=== PATIENT | male | born 1950 | race Caucasian/White ===

== ENCOUNTER 2022-07-03 12:00 | Outpatient (RCR) | payer MEDICARE, SELFPAY | END 2022-08-20 11:49 | disposition home or self-care (01) | PROVIDERS: PCP Orthopaedic Surgery Adult Reconstructive Orthopaedic Surgery; Visit Provider Orthopaedic Surgery Adult Reconstructive Orthopaedic Surgery | DX: Z98.890 Other specified postprocedural states (principal); R26.89 Other abnormalities of gait and mobility; Z51.89 Encounter for other specified aftercare | CPT/HCPCS: 97110; 97140; 97162 ==

== ENCOUNTER 2023-12-09 14:16 | Outpatient (CLI) | payer MEDICARE, SELFPAY | END 2023-12-09 14:17 | disposition home or self-care (01) | LOC: KYNREF 14:18 | PROVIDERS: PCP Nurse Practitioner Family; Visit Provider Nurse Practitioner Family | DX: R59.9 Enlarged lymph nodes, unspecified (principal) | CPT/HCPCS: 85025 ==

== ENCOUNTER 2023-12-13 14:24 | Outpatient (CLI) | payer MEDICARE, SELFPAY ==
--- NOTE | 2023-12-13 14:30 | CRLHL7_ITS ---
For Patients: As a result of the Century Cures Act, medical imaging exams and procedure reports are released immediately into your electronic medical record. You may view this report before your referring provider. If you have questions, please contact your health care provider. Indication: swollen glands neck Technique: Grayscale and color Doppler ultrasound of the neck soft tissues performed. Comparison: None Findings: Normal bilateral cervical lymph nodes are present without cortical thickening. No abnormal vascularity. Normal central fatty dominique. Impression: No suspicious findings within the neck bilaterally. No evidence of adenopathy. Dictated by Grabiel Ennis MD @ 12/13/2023 3:04:03 PM (Electronically Signed)
== END 2023-12-13 14:25 | disposition home or self-care (01) ==
LOC: US 14:25
PROVIDERS: PCP Nurse Practitioner Family; Visit Provider Nurse Practitioner Family
DX: R59.9 Enlarged lymph nodes, unspecified (principal)
CPT/HCPCS: 76536

== ENCOUNTER 2024-01-10 15:48 | Outpatient (CLI) | payer MEDICARE, SELFPAY ==
--- NOTE | 2024-01-10 16:00 | CRLHL7_ITS ---
For Patients: As a result of the Century Cures Act, medical imaging exams and procedure reports are released immediately into your electronic medical record. You may view this report before your referring provider. If you have questions, please contact your health care provider. INDICATION: Pain. TECHNIQUE: CT of the neck soft tissues performed with IV contrast. Contrast: 116 cc Isovue 370. COMPARISON: None available at this institution. FINDINGS: The nasopharynx, oropharynx and hypopharynx appear unremarkable. The supraglottic, glottic and infraglottic spaces are preserved. The parotid and submandibular glands appear unremarkable. The thyroid gland is normal. No lymphadenopathy identified. Mild atherosclerotic disease. The visualized intracranial components appear grossly intact. Visualized orbits and contents appear unremarkable. The paranasal sinuses are clear as visualized. Dependent atelectasis. Moderate spondylosis of the cervical spine. IMPRESSION: 1. No evident mass or lymphadenopathy within the neck. 2. Moderate spondylosis of the cervical spine. Please note that all CT scans at this facility use dose modulation, iterative reconstruction, and/or weight-based dosing when appropriate to reduce radiation dose to as low as reasonably achievable. Dictated by Sha Mackey MD @ 01/13/2024 3:06:42 PM (Electronically Signed)
[2024-01-10 16:18] LABS: Creatinine* 1.3 mg/dL (0.5-1.5); Estimated Glomerular Filt Rate 58 ml/min
== END 2024-01-10 15:49 | disposition home or self-care (01) ==
LOC: CT 15:48
PROVIDERS: PCP Nurse Practitioner Family; Visit Provider Otolaryngology
DX: M54.2 Cervicalgia (principal); M47.892 Other spondylosis, cervical region
CPT/HCPCS: 36415; 70491; 82565; Q9967

== ENCOUNTER 2024-03-03 10:10 | Outpatient (CLI) | payer MEDICARE, SELFPAY ==
--- NOTE | 2024-03-03 10:15 | CRLHL7_ITS ---
For Patients: As a result of the Century Cures Act, medical imaging exams and procedure reports are released immediately into your electronic medical record. You may view this report before your referring provider. If you have questions, please contact your health care provider. Indication: Pain. Technique: Multiplanar, multisequence MRI of the thoracic spine was performed without the use of intravenous contrast. Comparison: None relevant available at the time of interpretation. Findings: Mild chronic superior endplate compression deformity of T1 and T2. Moderate inferior endplate compression deformity of T6. No internal marrow edema and these findings are chronic. [id number] multilevel disc degeneration. Slightly exaggerated thoracic kyphosis. No abnormal cord signal. T10-11: Central disc protrusion with facet arthropathy results in mild spinal canal narrowing. Mild neural foraminal narrowing. Mild spondylosis at the remaining thoracic levels without high-grade spinal canal or neural foraminal stenosis. Mild to moderate lower cervical spondylosis. Impression: 1. Chronic compression deformities of T1, T2 and T6. 2. At T10-11, central disc protrusion and facet arthropathy combine to result in mild spinal canal and neural foraminal narrowing. 3. Mild spondylosis at the remaining thoracic levels. 4. No abnormal cord signal. Dictated by Sha Mackey MD @ 03/03/2024 5:39:35 PM (Electronically Signed)
== END 2024-03-03 10:11 | disposition home or self-care (01) ==
PROVIDERS: PCP Nurse Practitioner Family; Visit Provider Physician Assistant
DX: G56.42 Causalgia of left upper limb (principal); M51.24 Other intervertebral disc displacement, thoracic region; M47.894 Other spondylosis, thoracic region
CPT/HCPCS: 72146

== ENCOUNTER 2024-04-07 11:27 | Outpatient (CLI) | payer MEDICARE, SELFPAY ==
--- NOTE | 2024-04-07 12:36 | P.ANES_ITS ---
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
--- NOTE | 2024-04-07 12:53 | W.ANESCHARGE ---
Anesthesia Charges Start Date/Time Anesthesia Start Date: 04/07/24 Anesthesia Start Time: 12:13 Stop Date/Time Anesthesia Stop Date: 04/07/24 Anesthesia Stop Time: 12:35 Summary Extremes of Age - Over 70 or under 1: MDA
== END 2024-04-07 11:28 | disposition home or self-care (01) ==
LOC: OP CLINIC 11:28
PROVIDERS: PCP Nurse Practitioner Family; Visit Provider Internal Medicine
DX: R19.5 Other fecal abnormalities (principal); D12.0 Benign neoplasm of cecum
CPT/HCPCS: 00811; 45380; 88305; 99100; J2704

== ENCOUNTER 2024-09-22 15:52 | Outpatient (CLI) | payer MEDICARE, SELFPAY | END 2024-09-22 15:53 | disposition home or self-care (01) | PROVIDERS: PCP Nurse Practitioner Family; Visit Provider Nurse Practitioner Family | DX: I10 Essential (primary) hypertension (principal); E78.5 Hyperlipidemia, unspecified; M81.0 Age-related osteoporosis without current pathological fracture; Z12.5 Encounter for screening for malignant neoplasm of prostate | CPT/HCPCS: 80053; 80061; 85025; G0103 ==

== ENCOUNTER 2024-10-07 12:56 | Outpatient (CLI) | payer MEDICARE, SELFPAY ==
--- NOTE | 2024-10-07 13:00 | CRLHL7_ITS ---
For Patients: As a result of the Cures Act, medical imaging exams and procedure reports are released immediately into your electronic medical record. You may view this report before your referring provider. If you have questions, please contact your health care provider. Examination: US abdominal aorta Indication: Abdominal aortic aneurysm screening. Technique: Broderick scale and color Doppler images of the aorta and common iliac arteries are obtained. Comparison: None Findings: Proximal aorta: 2.9 x 2.9 cm Mid aorta: 2.1 x 2.4 cm Distal aorta: 1.8 x 2.3 cm Right common iliac artery: 1.2 x 1.5 cm Left common iliac artery: 1.5 x 1.4 cm Impression: No abdominal aortic aneurysm. Dictated by Grabiel Ennis MD @ 10/07/2024 2:07:32 PM (Electronically Signed)
--- NOTE | 2024-10-07 14:00 | CRLHL7_ITS ---
For Patients: As a result of the Century Cures Act, medical imaging exams and procedure reports are released immediately into your electronic medical record. You may view this report before your referring provider. If you have questions, please contact your health care provider. DXA BONE MINERAL DENSITY STUDY Reason for exam: History of osteoporosis. Current height (in): 69. Weight (lb): 230. Menopause age: N/A. Ethnicity: White. 1. Have you had a previous hip or vertebral fracture? No. 2. Have you had any fractures during your adult life which did not result from significant trauma (e.g., auto accident)? No. 3. Did either of your parents have a hip fracture? No. 4. Do you smoke? No. 5. Have you ever taken Glucocorticoids? No. 6. Do you have rheumatoid arthritis? No. 7. Do you have secondary osteoporosis? No. 8. Do you drink 3 or more alcoholic drinks per day? No. 9. Are you being treated for osteoporosis? No. 10. Have you ever taken any of the following medications: Actonel, Evista, Fosamax, Miacalcin, Reclast, Boniva, Forteo, HRT (i.e. estrogen/hormone therapy), Protelos, Prolia, Vitamin D, Calcium, other ??? please specify. ANSWER: No. 11. Do you have any of the following medical conditions: Anorexia or bulimia, asthma or emphysema, end stage renal disease, hyperparathyroidism, any seizure disorders, cancer, inflammatory bowel diseases, hysterectomy, other ??? please specify. ANSWER: No. 12. What was your maximum height (inches)? Not provided. 13. Do you perform weight bearing exercise regularly? Not provided. 14. Do you regularly consume dairy products? Not provided. 15. Do you drink caffeinated beverages? Not provided. TECHNIQUE: Bone mineral density study was performed using the [employer]. FINDINGS: The results of the study expressed as bone mineral density (BMD) are as follows: Lumbar spine L1 to L3: BMD: 1.170 g/cm2. T-score: 0.9. Z-score: 1.9. Radius Left 33%: BMD: 0.742 g/cm2. T-score: -1.4. Z-score: 0.1. IMPRESSION: Osteopenia. *Comparison exams done prior to 09/2019 were performed on different unit, [employer]. Grabiel Ennis M.D. Diagnostic Radiologist [email or web address] ALEXA/frankie [email or web address]/Dictated by: Grabiel Ennis MD @ 10/08/2024 11:58:00 AM (Electronically Signed)
== END 2024-10-07 12:57 | disposition home or self-care (01) ==
LOC: US 12:57
PROVIDERS: PCP Nurse Practitioner Family; Visit Provider Nurse Practitioner Family
DX: Z13.6 Encounter for screening for cardiovascular disorders (principal); M81.0 Age-related osteoporosis without current pathological fracture; M85.89 Other specified disorders of bone density and structure, multiple sites
CPT/HCPCS: 76706; 77080

== ENCOUNTER 2025-03-23 12:52 | Outpatient (CLI) | payer MEDICARE, SELFPAY ==
--- NOTE | 2025-03-23 13:00 | CRLHL7_ITS ---
For Patients: As a result of the Cures Act, medical imaging exams and procedure reports are released immediately into your electronic medical record. You may view this report before your referring provider. If you have questions, please contact your health care provider. INDICATION: Lung cancer screening. History of smoking. TECHNIQUE: Low-dose lung cancer screening non-contrast CT chest. Dose reduction techniques were used. COMPARISON: None FINDINGS: NODULES: None. LUNGS AND PLEURA: Mild scarring within the left lower lobe. MEDIASTINUM: No adenopathy. CORONARY ARTERY CALCIFICATION: Severe. LIMITED UPPER ABDOMEN: 3.4 cm hiatal hernia. Atherosclerotic changes. MUSCULOSKELETAL: Left shoulder replacement hardware. Postop changes right shoulder. Old right-sided rib fracture deformities. Mild chronic wedging T6. IMPRESSION: Negative for lung cancer screening purposes. LUNG-RADS CATEGORY: 1: Negative. RADIOLOGIST RECOMMENDATION: Continue annual screening, if eligible, with low-dose CT chest in 12 months. Please note that all CT scans at this facility use dose modulation, iterative reconstruction, and/or weight-based dosing when appropriate to reduce radiation dose to as low as reasonably achievable. Dictated by Grabiel Ennis MD @ 03/24/2025 10:03:04 AM (Electronically Signed)
== END 2025-03-23 12:53 | disposition home or self-care (01) ==
LOC: CT 12:53
PROVIDERS: PCP Nurse Practitioner Family; Visit Provider Nurse Practitioner Family
DX: F17.290 Nicotine dependence, other tobacco product, uncomplicated (principal)
CPT/HCPCS: 71271